=== PATIENT | male | born 1945 | race Two or more races ===

== ENCOUNTER 2019-05-28 14:57 | Emergency (ER) | payer MEDICARE, OTHER ==
[~2019-05-28] VITALS: Ht 177.8 cm; Wt 72.6 kg
[2019-05-28 16:11] LABS: Basophils # (auto) 0.1 uL; Eosinophils # (auto) 0.1 uL; Lymphocytes # (auto) 1.9 uL; Monocytes # (auto) 0.6 uL
[2019-05-28 16:12] LABS: Basophils % (auto) 0.8 % (0.0-2.0); Eosinophils % (auto) 0.9 % (0.0-7.0); Hematocrit 45.4 % (41.0-53.0); Lymphocytes % (auto) 20.8 % (10.0-50.0); Mean Corpuscular Hemoglobin 26.7 pg (28.0-32.0); Mean Corpuscular Hgb Conc. 33.1 g/dL (32.0-36.0); Mean Corpuscular Volume 80.5 fL (80.0-100.0); Monocytes % (auto) 6.5 % (0.0-12.0); Neutrophils # (auto) 6.7 uL; Platelet Count (auto) 177 10^3/uL (140-450); Red Blood Cells 5.64 10^6/uL (4.5-5.90); Red Cell Distribution Width 14.9 % (11.8-14.3); White Blood Cell 9.4 10^3/uL (4.4-10.8)
[2019-05-28 16:22] LABS: Albumin 3.6 g/dL (3.4-5.0); Calcium 9.3 mg/dL (8.5-10.1); Potassium 3.3 mmol/L (3.5-5.1)
[2019-05-28 16:25] LABS: BUN/Creatinine Ratio 18.9; Bilirubin, Total 0.3 mg/dL (0.2-1.0); Total Protein 7.6 g/dL (6.4-8.2)
[2019-05-29] MEDS ORDERED: IOHEXOL 300 MG/ML 100ML BOTTLE IJ ONE (02:02)
[2019-05-29 08:15] VITALS: BP 143/81
== END 2019-05-29 08:35 | disposition short-term general hospital (02) ==
LOC: ER 15:02
DX: I71.4 Abdominal aortic aneurysm, without rupture (principal); F17.210 Nicotine dependence, cigarettes, uncomplicated
CPT/HCPCS: 36415; 71260; 74176; 74177; 80053; 85025; 93005; 99285; Q9967